=== PATIENT | female | born 1990 | race Caucasian/White ===

== ENCOUNTER 2017-04-03 23:17 | Emergency (ER) | payer MEDICAID ==
[~2017-04-03] VITALS: Ht 160 cm; Wt 69.0 kg
[~2017-04-03 23:17] MED LIST: IBUP-1542 PO
[2017-04-03 23:21] VITALS: Ht 160 cm; Wt 69.0 kg
[2017-04-04] MEDS ORDERED: BEN50 PO (04:04)
--- NOTE | 2017-04-04 04:10 | ERD ---
ER Documentation Chief Complaint Date/Time DATE: 04/04/17 TIME: 04:06 Chief Complaint c/o fever and tongue pain x 1 day HPI 26-year-old female presents here to emergency department for complaints of hot flashes numbness and tingling all over the body that started yesterday. Patient does admit to be going through a lot of stress lately. Patient does not have any chest pain or palpitations. Patient denies any fever or chills. Patient denies any headache. ROS All systems reviewed and are negative except as per history of present illness. Medications Home Meds Active Scripts Diphenhydramine Hcl* (Benadryl*) 50 Mg Cap, 50 MG PO Q6 Y for ANXIETY, #10 CAP Prov:ITZ TURNER [employer] 04/04/17 Ibuprofen* (Motrin*) 600 Mg Tab, 600 MG PO Q6H Y for PAIN AND OR ELEVATED TEMP, #30 Prov:STEFANO MORALES [employer] 05/20/15 Reported Medications [None] No Conflict Check 04/13/10 Allergies Allergies: Coded Allergies: No Known Allergy (Verified Allergy, Unknown, 04/13/10) PMhx/Soc Medical and Surgical Hx: pt denies Medical Hx, pt denies Surgical Hx History of Surgery: No Anesthesia Reaction: No Hx Neurological Disorder: No Hx Respiratory Disorders: No Hx Cardiac Disorders: No Hx Psychiatric Problems: No Hx Miscellaneous Medical Probl: No Hx Alcohol Use: No Hx Substance Use: No Hx Tobacco Use: No FmHx Family History: No coronary disease, No diabetes, No other Physical Exam Vitals Vital Signs Date Time Temp Pulse Resp B/P Pulse Ox O2 Delivery O2 Flow Rate FiO2 04/03/17 23:21 98.2 107 20 127/73 99 Physical Exam GENERAL: The patient is well developed and appropriate for usual state of health, in no apparent distress. CHEST: Clear to auscultation bilaterally. There are no rales, wheezes or rhonchi. HEART: Regular rate and rhythm. No murmurs, clicks, rubs or gallops. No S3 or S4. ABDOMEN: Soft, nontender and nondistended. Good bowel sounds. No rebound or guarding. No gross peritonitis. No gross organomegaly or masses. No Jnoes sign or McBurney point tenderness. BACK: No midline or flank tenderness. EXTREMITIES: Equal pulses bilaterally. There is no peripheral clubbing, cyanosis or edema. No focal swelling or erythema. Full range of motion. Grossly neurovascularly intact. NEURO: Alert and oriented. Cranial nerves 2-12 intact. Motor strength in all 4 extremities with 5/5 strength. Sensation grossly intact. Normal speech and gait. SKIN: There is no apparent rash or petechia. The skin is warm and dry. HEMATOLOGIC AND LYMPHATIC: There is no evidence of excessive bruising or lymphedema. No gross cervical, axillary, or inguinal lymphadenopathy. Procedures/MDM Medical decision making: Patient symptoms was likely is consistent with anxiety. No symptoms of any neurovascular compromise. No symptoms of any cardiopulmonary emergencies at this time. No symptoms of neurologic emergency. Neurologic exam is normal. Patient appears once hemodynamically stable. Prescription was given for Benadryl for anxiety, is advised to follow-up with primary care doctor in 2-3 days for reevaluation of symptoms. Patient was advised to return to emergency department for any worsening symptoms. Disposition: Home. Stable. Departure Diagnosis: Primary Impression: Anxiety Condition: Stable Patient Instructions: Anxiety Reaction ITZ TURNER NP Apr 04, 2017 04:10
== END 2017-04-04 04:46 | disposition home or self-care (01) ==
LOC: FTE 23:17
DX: F41.9 Anxiety disorder, unspecified (principal)
CPT/HCPCS: 99283

== ENCOUNTER 2018-01-05 22:47 | Emergency (ER) | END 2018-01-06 02:50 | disposition home or self-care (01) ==